=== PATIENT | female | born 1960 | race Two or more races ===

== ENCOUNTER 2021-09-05 17:18 | Emergency (ER) | payer OTHER ==
[~2021-09-05] VITALS: Ht 172.7 cm; Wt 113.4 kg
[2021-09-05] MEDS ORDERED: CELEBREX200MG PO (19:53)
[2021-09-05] MEDS ORDERED: SKELAXIN800 MG PO (19:53)
== END 2021-09-05 20:00 | disposition home or self-care (01) ==
LOC: ER 17:18
DX: M54.2 Cervicalgia (principal)

== ENCOUNTER 2021-10-07 12:07 | Outpatient (CLI) | payer OTHER ==
[~2021-10-07 12:07] MED LIST: CELEBREX200MG PO; SKELAXIN800 MG PO
== END 2021-10-07 12:15 | disposition home or self-care (01) ==
LOC: RAD 12:07
PROVIDERS: ATTEND Orthopaedic Surgery Orthopaedic Surgery of the Spine
DX: M13.852 Other specified arthritis, left hip (principal); M13.851 Other specified arthritis, right hip